=== PATIENT | male | born 1965 | race Caucasian/White ===

== ENCOUNTER 2022-03-08 17:59 | Emergency (ER) | payer SELFPAY ==
--- NOTE | ~2022-03-08 | XR_ITS ---
EXAMINATION: XR ANKLE, LEFT CLINICAL INFORMATION: Left ankle pain with swelling in neck are most COMPARISON: None TECHNIQUE: AP, lateral, and mortise views of the left ankle. FINDINGS: The ankle joint appears normal. No ankle fracture is seen. Bilateral soft tissue swelling is present. Of note, there is a comminuted minimally displaced calcaneal fracture present. No other fractures are seen. XR/XR ankle LT min 3V IMPRESSION: Comminuted minimally displaced calcaneal fracture.
[2022-03-08 18:20] VITALS: BP 146/95; PULSE 111; RESP 17; TEMP 37; O2SAT 97; BMI 23.5
--- NOTE | 2022-03-08 20:23 | ED.LOWEXIN ---
HPI - Extremity Injury (Lower) General Chief Complaint: Extremity Injury, Lower Stated Complaint: twisted ankle Source: patient Mode of arrival: ambulatory Limitations: no limitations History of Present Illness HPI Narrative: 56-year-old male presents with left foot pain and ankle swelling after jumping off of his deck and landing on his left foot. He is unable to bear weight. He does not report any other injuries from this incident. MD complaint: ankle injury and foot injury Onset (ago): hour(s) (Within the hour of arrival) Type of Injury: unknown Place: home Severity: severe Severity scale (1-10): 9 Relieving factors: nothing Exacerbating factors: weight bearing, movement and palpation Context: jumping Associated symptoms: snap/pop sensation, swelling and unable to bear weight Other symptoms: none Treatments prior to arrival: cold therapy Related Data Previous Rx's Medication Instructions Recorded oxycodone 5 mg tablet 5 mg PO Q4H PRN pain 3 days #18 03/08/22 tabs Allergies Allergy/AdvReac Type Severity Reaction Status Date / Time No Known Allergies Allergy Verified 03/08/22 18:27 Review of Systems Review of Systems: Constitutional: No Fever, No Chills ENT/Mouth: No Ear Pain, No Hoarseness, No sore throat Eyes: No Eye Pain, No Swelling, No Redness, No Foreign Body Cardiovascular: No Chest Pain, No SOB Respiratory: No Cough, No Dyspnea Gastrointestinal: No Nausea, No Vomiting, No Diarrhea, No abdominal Pain Genitourinary: No Dysuria, No Hematuria Musculoskeletal: positive left foot and ankle pain, No Myalgias, positive left ankle Joint Swelling Skin: No Skin lacerations, No rash Neuro: No Weakness, No Numbness, No Paresthesias, No Loss of Consciousness, No Dizziness, No Headache Psych: No Anxiety/Panic, No Depression Heme/Lymph: no easy bruising, no Lymphadenopathy Endocrine: No Polyuria, No Polydipsia Yes all other systems are reviewed and are negative PMFSH Past Medical History Attestation statement: The following information was validated with the patient. Source: old records reviewed Medical History No known health problems Surgical History No history of previous surgery Social History Social History Alcohol intake: never Patient Tobacco Use Status: Current everyday Tobacco user Use of substances other than those prescribed or required for medical reasons: Yes Substance Use Type: Marijuana Substance Use Frequency: Chronic Longstanding Advance Directives: No Advance Directives Information Provided: No Physical Exam Vital Signs: Vital Signs: Last Vital Signs Temp 98.2 F 03/08/22 20:25 Pulse 89 03/08/22 20:25 Resp 17 03/08/22 18:20 BP 158/97 H 03/08/22 20:25 Pulse Ox 99 03/08/22 20:25 O2 Del Method 03/08/22 20:25 BMI result Body Mass Index 23.5 Appearance: Alert. Oriented X3. Moderate distress. Eyes: Pupils equal, round and reactive to light. ENT: Pharynx normal. Neck: Normal inspection. Neck supple. CVS: Normal heart rate and rhythm. Pulses normal. Respiratory: No respiratory distress. Breath sounds normal. Abdomen: Soft and nontender. Skin: Skin warm and dry. Normal skin color. Normal skin turgor. Extremities: Left lower extremity edematous and ecchymotic circumferentially from the malleolar processes to the flanges. Range of motion not performed secondary to multiple calcaneal fractures noted on x-ray. Brisk capillary refill and pulses equal to bilateral lower extremities. Neuro: No motor deficit. No sensory deficit. Cranial nerves 2-12 intact. Course Course Course Narrative: 56-year-old male presents with left lower extremity pain and swelling after jumping off of his deck. X-rays were completed while patient was in the emergency department waiting room and shows multiple fractures to the left calcaneus. Discussion with Dr. Grijalva via tiger text, he requests posterior splint with large amounts of padding. Detailed description of signs symptoms indicating need for emergent intervention discussed with the patient, patient does understand that he must not bear weight, I prescribed oxycodone for pain management. He does understand that this drug has significant addiction risks. He will follow-up with Dr. Grijalva. Patient verbalized understanding of and agrees to plan of care discharge home. Consultations Consultation #1: Rudi Time: 20:28 MDM - Extremity Injury (Lower) Differential Diagnosis Differential diagnosis: Likely ankle sprain and strain and ankle fracture Medical Records Attestation: I reviewed the patient's medical records. Imaging Data Left ankle x-ray: Attestation: I personally reviewed and interpreted this imaging study as follows: Radiologist's impression: EXAMINATION: XR ANKLE, LEFT CLINICAL INFORMATION: Left ankle pain with swelling in neck are most? COMPARISON: None? TECHNIQUE: AP, lateral, and mortise views of the left ankle. FINDINGS: The ankle joint appears normal. No ankle fracture is seen. Bilateral soft tissue swelling is present. Of note, there is a comminuted minimally displaced calcaneal fracture present. No other fractures are seen.? XR/XR ankle LT min 3V IMPRESSION: Comminuted minimally displaced calcaneal fracture. Procedures Orthopedic Splinting/Casting Injury #1: Side: left Lower Extremity Injury Location: foot Lower Extremity Immobilizer: posterior splint Other Orthopedic Equipment: crutches Discharge Plan Discharge Clinical Impression: Calcaneal fracture Patient Disposition: Home, Self-Care Instructions: Crutch Instructions (ED), Calcaneal Fracture (ED), R.I.C.E. Treatment (ED) Additional Instructions: You were evaluated for left ankle pain and swelling. X-rays indicated a left calcaneal fracture. Do not bear weight. Keep splint in place until you see orthopedics. Rest, ice and elevate. Use crutches for all ambulation. Follow-up with Dr. Grijalva. I provided his phone number for you. Alternate Tylenol 650 mg every 6 hours and Motrin 600 mg every 6 hours as needed for pain management. Write down what time you take these medications to prevent accidental overdose. Take these medications in conjunction with your oxycodone. I prescribed oxycodone. Oxycodone is a narcotic and has high risk for addiction and abuse. Do not drive or operate machinery while taking this medication. This medication can cause drowsiness, increased risk for falls, delay reaction time, and cause constipation. Drink plenty of fluids and use MiraLax daily while taking this medication. Thank you for choosing this emergency department for evaluation. Please follow-up with primary care physician as needed. Return to the emergency department for any new, concerning, or worsening symptoms. Prescriptions: New oxycodone 5 mg tablet 5 mg PO Q4H PRN (Reason: pain) 3 Days Qty: 18 0RF Rx Instructions: Partial Fill upon patient request. Referrals: Ethan Grijalva MD [Physician] - 2 days (Calcaneal fracture) Interventions: ED Discharge Assessment Last Done: 03/08/22 21:19 Discharge Date/Time: 03/08/22 21:22
[2022-03-08 20:25] VITALS: BP 158/97; PULSE 89; TEMP 36.8; O2SAT 99
[2022-03-08] MEDS: Diphth,Pertus(ACell),Tet Adult 0.5 ML SYRINGE IM (20:50)
[2022-03-08] MEDS: oxyCODONE HCl Immed Release 5 MG TABLET PO (20:50)
== END 2022-03-08 21:22 | disposition home or self-care (01) ==
PROVIDERS: Emergency Provider Internal Medicine
DX: S92.002A Unspecified fracture of left calcaneus, initial encounter for closed fracture (principal); Y93.39 Activity, other involving climbing, rappelling and jumping off; Y93.89 Activity, other specified; Y92.018 Other place in single-family (private) house as the place of occurrence of the external cause; Y99.9 Unspecified external cause status
CPT/HCPCS: 29515; 73610; 90471; 90715; 99284

== ENCOUNTER → 2022-03-17 09:55 | Outpatient (BNVA) | payer MEDICARE, SELFPAY | PROVIDERS: Visit Provider Physician Assistant | DX: S92.002A Unspecified fracture of left calcaneus, initial encounter for closed fracture (principal) | CPT/HCPCS: 29515; 99202 ==

== ENCOUNTER 2022-03-24 08:41 | Outpatient (REF) | payer MEDICARE, SELFPAY ==
--- NOTE | ~2022-03-24 | XR_ITS ---
EXAMINATION: XR CALCANEUS, LEFT CLINICAL INFORMATION: Fracture COMPARISON: Ankle radiographs 03/08/2022 TECHNIQUE: Lateral and axial views of the left calcaneus were obtained. FINDINGS: Redemonstration of a comminuted, minimally displaced fracture of the calcaneus in similar alignment. No sasha bridging bony callus formation. Trace tibiotalar joint effusion. Soft tissues are otherwise unremarkable. XR/XR calcaneus LT min 2V IMPRESSION: Redemonstration of a comminuted fracture and minimally displaced of the calcaneus in similar alignment. No sasha bridging bony callus formation. Trace tibiotalar joint effusion.
== END 2022-03-24 08:42 | disposition home or self-care (01) ==
LOC: HO.HOSX 08:41
PROVIDERS: Visit Provider Physician Assistant
DX: S92.002A Unspecified fracture of left calcaneus, initial encounter for closed fracture (principal); X58.XXXA Exposure to other specified factors, initial encounter; Y93.9 Activity, unspecified; Y92.9 Unspecified place or not applicable; Y99.9 Unspecified external cause status
CPT/HCPCS: 73650

== ENCOUNTER → 2022-03-31 12:58 | Outpatient (BNVA) | payer MEDICARE, SELFPAY | PROVIDERS: Visit Provider Physician Assistant | DX: S92.002A Unspecified fracture of left calcaneus, initial encounter for closed fracture (principal) | CPT/HCPCS: 29405 ==

== ENCOUNTER 2022-04-28 07:50 | Outpatient (REF) | payer MEDICARE, SELFPAY ==
--- NOTE | ~2022-04-28 | XR_ITS ---
EXAMINATION: XR CALCANEUS, LEFT CLINICAL INFORMATION: Fracture COMPARISON: Previous x-rays March 2022 TECHNIQUE: Lateral and axial views of the left calcaneus were obtained. FINDINGS: The comminuted minimally displaced calcaneal fracture does not appear appreciably changed. The bones are osteopenic. Soft tissues are unremarkable. XR/XR calcaneus LT min 2V IMPRESSION: No appreciable change in the comminuted minimally displaced calcaneal fracture.
== END 2022-04-28 07:51 | disposition home or self-care (01) ==
LOC: HO.HOSX 07:50
PROVIDERS: Visit Provider Physician Assistant
DX: S92.002D Unspecified fracture of left calcaneus, subsequent encounter for fracture with routine healing (principal)
CPT/HCPCS: 29405; 73650

== ENCOUNTER 2022-06-09 17:06 | Outpatient (REF) | payer MEDICARE, SELFPAY ==
--- NOTE | ~2022-06-09 | XR_ITS ---
EXAMINATION: XR CALCANEUS, LEFT CLINICAL INFORMATION: Fracture of calcaneus COMPARISON: Left calcaneus radiograph from 04/28/2022 TECHNIQUE: Lateral and axial views of the left calcaneus were obtained. FINDINGS: Redemonstration of comminuted minimally displaced fracture through the calcaneal body, similar in appearance. Joint spaces and alignment are otherwise maintained. Soft tissues are unremarkable. XR/XR calcaneus LT min 2V IMPRESSION: Redemonstration of comminuted minimally displaced fracture through the calcaneal body, similar in appearance.
== END 2022-06-09 17:07 | disposition home or self-care (01) ==
LOC: HO.HOSX 17:06
PROVIDERS: Visit Provider Physician Assistant
DX: S92.002D Unspecified fracture of left calcaneus, subsequent encounter for fracture with routine healing (principal); X58.XXXD Exposure to other specified factors, subsequent encounter
CPT/HCPCS: 73650; 99212

== ENCOUNTER 2022-07-21 | Outpatient (REF) | payer SELFPAY ==
--- NOTE | ~2022-07-21 | XR_ITS ---
EXAMINATION: XR CALCANEUS, LEFT CLINICAL INFORMATION: Unspecified fracture left calcaneus. COMPARISON: Left calcaneus 06/09/2022 and 04/28/2022 TECHNIQUE: Lateral and axial views of the left calcaneus were obtained. FINDINGS: Redemonstrated is a comminuted minimally displaced fracture through posterior calcaneal body which is stable. The subtalar joint and ankle mortise is normal. XR/XR calcaneus LT min 2V IMPRESSION: Comminuted healed fracture through the posterior body of calcaneus. No change in the posterior small bone fragment from previous exam.
== END 2022-07-21 00:01 | disposition home or self-care (01) ==
LOC: HO.HOSX
PROVIDERS: Visit Provider Physician Assistant
DX: S92.002A Unspecified fracture of left calcaneus, initial encounter for closed fracture (principal)
CPT/HCPCS: 73650; 99212